=== PATIENT | female | born 1995 | race Caucasian/White ===

== ENCOUNTER 2021-03-15 06:23 | Inpatient (IN) | payer BC ==
[~2021-03-15] VITALS: Ht 175.3 cm; Wt 125.0 kg
[2021-03-15] VITALS (66 sets, daily range): BP systolic 110–169; BP diastolic 55–101; PULSE 68–131; TEMP 97.9–98.4
--- NOTE | 2021-03-15 06:35 | NUR ---
0635 Pt ambulatory to LR6 with spouse. Changed into clean gown. Pt denies decreased movement, vaginal bleeding, regular contractions, or any leaking of fluid. FHR/Hawkins applied. Induction of labor and plan of care discussed with patient. Patient verbalizes understanding. 0655 IV started in left wrist. Lactated Ringers started. Consents signed.
[2021-03-15] MEDS ORDERED: PRENATAL TABLET PO (06:57)
[2021-03-15] MEDS ORDERED: PROFERRIN ES12 MG PO (06:58)
[2021-03-15] MEDS ORDERED: DINO-LIFE1 CTB PO (06:59)
[2021-03-15 07:50] LABS: BASO % 0.2 % (0.0-2.0); EOS # 0.1 (0.0-0.7); EOS % 0.8 % (0-4.0); GRAN # 7.5 (1.4-6.5); GRAN % 74.2 % (42.2-75.2); HEMOGLOBIN 10.6 g/dl (12.5-16.0); MEAN CELL VOLUME 84 fl (80.0-100.0); MEAN CORPUSCULAR HEMOGLOBIN 28 pg (27.0-31.0); MEAN CORPUSCULAR HGB CONC 33 g/dl (33.0-37.0); MEAN PLATELET VOLUME 10.5 fl (7.4-10.4); MONO # 0.4 (0.1-0.6); MONO % 4.2 % (1.7-9.3); PLATELET COUNT 121 K/mm3 (130-400); RED BLOOD COUNT 3.79 M/mm3 (4.10-5.30); REDCELL DISTRIBUTION WIDTH-CV 13.6 % (11.5-14.5)
[2021-03-15 08:04] LABS: HEMATOCRIT 31.8 % (37.0-47.0)
--- NOTE | 2021-03-15 08:06 | NUR ---
Dr. Seth contacted per Madhuri. Reported minimal variability in FHR strip. Interventions in place. Fluid increased. Patient wedged right. Juice given to pt to drink. Starting pitocin per protocol at 2mu/hr.
[2021-03-15 08:16] LABS: COLLECTION METHOD CLEAN CATCH
[2021-03-15 08:22] LABS: MUCOUS Present /lpf; PH 6 (5-8); SQUAMOUS EPITHELIAL 0-2 /hpf; URINE APPEARANCE Hazy; URINE BACTERIA None Seen /hpf; URINE BILIRUBIN Negative (NEGATIVE); URINE BLOOD Negative (NEGATIVE); URINE COLOR Yellow; URINE GLUCOSE Negative (NEGATIVE); URINE KETONE Negative (NEGATIVE); URINE LEUKOCYTE ESTERASE Negative (NEGATIVE); URINE NITRATE Negative (NEGATIVE); URINE PROTEIN(semi-quant) Negative (NEGATIVE); URINE RBC 0-2 /hpf; URINE UROBILINOGEN Negative (NEGATIVE); URINE WBC 0-2 /hpf
[2021-03-15 08:35] LABS: ALBUMIN 2.5 gm/dL (3.5-5.0); ALKALINE PHOSPHATASE 133 U/L (0-750); ANION GAP 10 mmol/L; AST,SGOT 9 U/L (5-34); BILIRUBIN,TOTAL 0.2 mg/dL (0.2-1.2); BLOOD UREA NITROGEN 5 mg/dL (7-19); CALCIUM 8.6 mg/dL (8.4-10.2); CARBON DIOXIDE 19 mEq/L (22-29); CHLORIDE 108 mmol/L (98-107); CREATININE, serum 0.51 mg/dL (0.57-1.11); GLUCOSE 106 mg/dL (70-99); POTASSIUM 3.6 mmol/L (3.5-4.5); SODIUM 137 mmol/L (136-145); TOTAL PROTEIN 6.2 gm/dL (6.2-8.1)
[2021-03-15 08:42] LABS: ALANINE AMINOTRANSFERASE < 6 U/L (0-55)
--- NOTE | 2021-03-15 08:42 | NUR ---
No vital signs taken due to lab being in room to draw blood.
--- NOTE | 2021-03-15 09:05 | NUR ---
5980 Roles at pt bedside. Discussed plan of care. Reviewed FHR strip and orders to continue pitocin per protocol.
--- NOTE | 2021-03-15 11:02 | NUR ---
1010-Patient repositioned WR. 1030-Repositoned WL. 1047-Off EFM to bathroom. Returns to bedside standing. 1055-FHR with minimal variability and late decels pit turned off.
--- NOTE | 2021-03-15 12:27 | NUR ---
1224 Roles on unit reviewing FHR strip. Starting pitocin at 2mu/hr per MD order.
--- NOTE | 2021-03-15 12:28 | NUR ---
1204 Roles at patient bedside reviewing FHR strip. Discussing plan of care and options with patient. 1205 SVE /-3 per Roles. AROM @ 1205. FSE applied. Pt verbalizes understanding of plan.
--- NOTE | 2021-03-15 13:08 | NUR ---
1308- Roles leaving unit. Reviews FHR monitor and gives orders to continue with pitocin per protocol and call with questions or concerns.
--- NOTE | 2021-03-15 14:33 | NUR ---
PT UP TO BATHROOM
--- NOTE | 2021-03-15 15:21 | NUR ---
1450 Pt repositioned for epidural placement. RN at bedside. FHR tracing. Vital signs set to every 5 minutes. 1501 Test dose given. Plan of care discussed and safety precautions discussed. Pt verbalizes understanding.
--- NOTE | 2021-03-15 16:47 | NUR ---
1647 Roles on unit monitoring FHR strip/contractions.
--- NOTE | 2021-03-15 17:46 | NUR ---
5822 Dr. Seth on unit reviewing FHR strip/TOCO. This RN reported there was minimal variability before respoitioning patient. After repositioning pt into [facility] there was two variables and now moderate variability. Dr. Seth confirms. Will call with update of SVE
--- NOTE | 2021-03-15 18:58 | NUR ---
185- FHR NOTED TO BE DECELERATING DOWN. THIS RN TO BEDSIDE TO ASSIST PATIENT IN REPOSITIONING. FHR DOWN IN THE 60S. PATIENT REPOSITIONED TO RIGHT LATERAL. 1858- SVE BY THIS RN REVEALS /-1. FHR RESPONDING TO STIMULATION. 1899- PLACED ON MOTHER BY Akila PAUL RN. FHR STARTING TO RETURN TO BASELINE. FHR IN THE 90S. 1900- FHR UP TO 140-150, BACK TO BASELINE. DISCUSSED PLAN OF CARE WITH MOTHER. SHE VERBALIZED UNDERSTANDING. PATIENT IN WR POSITION. THIS RN REMAINS AT BEDSIDE FOR A FEW MINUTES TO MONITOR FHR WITH NEXT COUPLE OF CONTRACTIONS. 190- FHR STILL IN 140-150 RANGE. MOTHER TOLERATING WELL WITH NO CONCERNS OR NEEDS AT THIS TIME. CALL LIGHT WITHIN REACH.
--- NOTE | 2021-03-15 19:25 | NUR ---
1924- THIS RN TO BEDSIDE TO DECREASE PITOCIN DUE TO CONTRACTION PATTERN. DISCUSSED WITH PATIENT WHY AND SHE VERBALIZED UNDERSTANDING WITH NO FURTHER QUETIONS. 1928- DECREASED PITOCIN FROM 16 TO 10. THIS RN FINISHED THIS, FHR STARTED TO DECELERATE DOWN TO THE 70S. 1929- THIS RN HELPED PATIENT ROTATED FROM WR TO LL POSITION. AT THIS TIME, Akila PAUL, RN AND Shira BONDS, RN AT BEDSIDE TO HELP ASSIST. FHR NOT RETURNING OR RESPONDING AT THIS TIME AND STILL IN THE 70-80 RANGE. 1930- PATIENT REPOSITIONED TO WR POSITION. THIS RN CHECKED PATIENT AND SHE IS COMPLETE AND -1 STATION. 1931- CALLED PROVIDER PROP ATTENDANT TO LET HIM KNOW WHAT WAS HAPPENING AND THAT HE SHOULD PROBABLY COME IN. HE STATED HE WAS ON HIS WAY. WE HELPED PATIENT INTO HANDS AND KNEES. FHR STARTED TO RETURN TO BASELINE AT THIS POINT. FHR 145-150. 1932- FHR RETURNED TO BASELINE AND STAYING THERE AT 150 AT THIS POINT. THIS RN STAYS WITH PATIENT AT THIS TIME WHILE WAITING ON THE PROVIDER. 1943- DR. PERRY TO BEDSIDE. FHR STABLE AT 150. PROVIDER HAD TO RUN TO OR FOR SOMETHING AND ADVISED HE WOULD BE BACK. THIS RN REMAINS AT BEDSIDE WITH PATIENT. 1954- DR. PERRY BACK AT BEDSIDE AND DISCUSSES PLAN OF CARE AND POSSIBLE DELIVERY OPTIONS WITH PATIENT. PATIENT REPOSITIONED TO SEMI FOWLERS POSITION AND DOING WELL. CALL LIGHT WITHIN REACH.
--- NOTE | 2021-03-15 20:18 | NUR ---
2017- DR. PERRY AND THIS RN TO BEDSIDE FOR SVE TO SEE IF HEAD HAD DECENDED MORE TO START PUSHING. PROVIDER NOTED HEAD IN 0 STATION AND TO REMOVE SANTOS AND START PUSHING. 2019- THIS RN REMOVED THE SANTOS AND NOTED 150 URINE OUTPUT WITH THIS. 2024- THIS RN STARTS PUSHING WITH PATIENT AND STAYS IN THE ROOM TO CONTINUE PUSHING WITH PATIENT WITH CONTRACTIONS. 2042- DR. PERRY TO BEDSIDE TO EVALUATE PUSHING. ADVISED TO START PITOCIN AGAIN DUE TO CONTRACTIONS SPACING OUT. 2044- THIS RN STARTED PITOCIN PER PROTOCOL AT 2MU AND WILL INCREASE SLOWLY. THIS RN CONTINUES PUSHING WITH PATIENT WITH EVERY CONTRACTION. 2114- THIS RN INCREASED PITOCIN TO 4 MU. CONTINUES PUSHING WITH PATIENT AT THIS TIME. 2144- DR. PERRY TO BEDSIDE TO SEE HOW PATIENT IS PROGRESSING. THIS RN CONTINUES PUSHING WITH PATIENT. 2214- DR. PERRY TO BEDSIDE TO ADVISE THAT DR. KAUR IS ON HER WAY AND WILL MOST LIKELY DELIVER. THIS RN CONTINUES PUSHING WITH PATIENT. 2235- ROLES TO BEDSIDE. SHE PUSHES WITH PATIENT AND ADVISES PATIENT IS PUSHING WELL. THIS RN CONTINUES PUSHING WITH PATIENT. 2315- ROLES BACK TO BEDSIDE TO SEE HOW PATIENT IS DOING. PROVIDER SEES PATIENT PUSHING AND ADVISES TO GO AHEAD AND BREAK DOWN THE BED AND GET READY FOR DELIVERY. THIS RN CALLS NURSERY STAFF TO ADVISE OF THIS AND BEGINS SETTING UP ROOM FOR DELIVERY. 2328- OF VIABLE FEMALE . PLACED TO MOTHERS ABDOMEN WHERE NURSERY NURSE ASSUMES CARE. CORD CLAMPED AND CUT AND INFANT TAKEN TO WARMER TO BE ASSESSED BY NURSERY STAFF. 2330- THIS RN CALLED OVER BY NURSERY STAFF TO ASSIST IS ASSESSING INFANT AND PPV. THIS RN HELPS AND LISTENS FOR HEART RATE AND BREATH SOUNDS. Shira BONDS AND Sofia QUEZADA CRNA TO BEDSIDE TO ASSIST WITH AT THIS TIME. 2335- OF PLACENTA. FUNDUS MASSAGED TO FIRM BY PROVIDER. PITOCIN STARTED PER PROTOCOL AT 333ML/HR. 2340- PROVIDER GIVES VERBAL ORDER FOR 800MCG OF CYTOTEC RECTALLY. THIS RN GETS MEDICATION AND GIVE TO PROVIDER AND PROVIDER INSERTS MEDICATION RECTALLY. PROVIDER BEGINS REPAIRS. SECOND DEGREE TEAR NOTED BY PROVIDER. 2350- PATIENT AND ROOM CLEANED UP AND PUT BACK TOGETHER. VITALS STABLE. FUNDUS FIRM. 300 EBL NOTED BY PROVIDER. RECOVERY STARTED.
[2021-03-16] VITALS (11 sets, daily range): BP systolic 112–145; BP diastolic 56–78; PULSE 75–102; TEMP 97.7–99.2
[2021-03-16] MEDS ORDERED: IBU800 M1 PO (09:29)
--- NOTE | 2021-03-16 19:15 | NUR ---
1915 DISMISSED TO HOME PER AMB ACC BY AND TOOL PUSHER.
== END 2021-03-16 19:15 | disposition home or self-care (01) | DRG 806 ==
LOC: LDR 06:23 → OB 13:36
PROVIDERS: ADMIT Obstetrics & Gynecology
PROC: 10E0XZZ Delivery of Products of Conception, External Approach (ICD-10-PCS; principal; 2021-03-16)
PROC: 3E033VJ Introduction of Other Hormone into Peripheral Vein, Percutaneous Approach (ICD-10-PCS; 2021-03-16)
DX: O36.4XX0 Maternal care for intrauterine death, not applicable or unspecified (principal); O41.03X0 Oligohydramnios, third trimester, not applicable or unspecified; Z37.0 Single live birth; O99.12 Other diseases of the blood and blood-forming organs and certain disorders involving the immune mechanism complicating childbirth; D69.6 Thrombocytopenia, unspecified; O77.0 Labor and delivery complicated by meconium in amniotic fluid; O70.1 Second degree perineal laceration during delivery; O76 Abnormality in fetal heart rate and rhythm complicating labor and delivery; Z3A.40 40 weeks gestation of pregnancy
CPT/HCPCS: J2590; J7120

== ENCOUNTER 2023-06-10 10:39 | Inpatient (IN) | payer BC ==
[~2023-06-10] VITALS: Ht 177.8 cm; Wt 135.5 kg
[2023-06-10] VITALS (26 sets, daily range): BP systolic 129–197; BP diastolic 65–102; PULSE 66–95; TEMP 97.7–98.5
[~2023-06-10 10:39] MED LIST: CEPHALEXIN500 M1 PO; DINO-LIFE1 CTB PO; IBU800 M1 PO; PRENATAL TABLET PO; PROFERRIN ES12 MG PO
--- NOTE | 2023-06-10 11:10 | NUR ---
Pt arrived on unit ambulatory from clinic as a direct admit for a primary to be done this afternoon. Pt denies any contractions, leaking of fluid or vaginal bleeding and reports normal movement. EFM and toco monitors started. Serial BP started. Plan of care and orders received from Dr. Adams reviewed with pt and family at the bedside. Pt verbalized an understanding and agreed with the plan.
[2023-06-10 12:29] LABS: BASO % 0.2 % (0.0-2.0); GRAN # 10.3 K/mm3 (1.4-6.5); GRAN % 86.6 % (42.2-75.2); HEMOGLOBIN 11.5 g/dl (12.5-16.0); LYMPH # 1.2 K/mm3 (1.2-3.4); LYMPH % 10.1 % (20.0-51.0); MEAN CELL VOLUME 87 fl (80.0-100.0); MEAN CORPUSCULAR HEMOGLOBIN 30 pg (27-31); MEAN CORPUSCULAR HGB CONC 35 g/dl (33.0-37.0); MEAN PLATELET VOLUME 10.7 fl (7.4-10.4); MONO # 0.2 K/mm3 (0.1-0.6); MONO % 1.9 % (1.7-9.3); PLATELET COUNT 154 K/mm3 (130-400); RED BLOOD COUNT 3.81 M/mm3 (4.10-5.30); REDCELL DISTRIBUTION WIDTH-CV 13.7 % (11.5-14.5)
[2023-06-10 12:48] LABS: ALBUMIN 2.8 gm/dL (3.5-5.0); BILIRUBIN,TOTAL 0.5 mg/dL (0.2-1.2); CALCIUM 9.5 mg/dL (8.4-10.2); CREATININE, serum 0.57 mg/dL (0.57-1.11); TOTAL PROTEIN 6.1 gm/dL (6.2-8.1)
[2023-06-10 12:57] LABS: COLLECTION METHOD CLEAN CATCH; PH 7.5 (5.0-8.5); URINE APPEARANCE Clear (CLEAR/HAZY); URINE BLOOD Negative (NEGATIVE); URINE COLOR Yellow (YELLOW); URINE GLUCOSE Negative (NEGATIVE); URINE KETONE Negative (NEGATIVE); URINE NITRATE Negative (NEGATIVE); URINE PROTEIN(semi-quant) Negative (NEGATIVE); URINE UROBILINOGEN 0.2 E.U/dL (0.2-1.0); URINE WBC 0-2 /hpf (0-2)
[2023-06-10 12:58] LABS: POTASSIUM 2.6 mmol/L (3.5-4.5)
[2023-06-10] MEDS ORDERED: PREDNISONE20 MG PO (12:58)
[2023-06-10] MEDS ORDERED: HUMULIN N PE100 U/ML SQ ×2 (13:00→13:01)
[2023-06-10 13:02] LABS: HEMATOCRIT 33.1 % (37.0-47.0)
[2023-06-10] MEDS ORDERED: VTAMINC250TA PO (13:04)
[2023-06-10] MEDS ORDERED: B COMPLEX #11 TA1 PO (13:04)
[2023-06-10] MEDS ORDERED: NATURAL MAGNES200 MG PO (13:05)
[2023-06-10] MEDS ORDERED: VITAMIND3 5000 PO (13:06)
[2023-06-11] VITALS (8 sets, daily range): BP systolic 120–160; BP diastolic 56–88; PULSE 72–96; TEMP 97.9–98.4
[2023-06-11 07:46] LABS: BASO % 0.2 % (0.0-2.0); EOS % 0.2 % (0.0-4.0); GRAN # 9.3 K/mm3 (1.4-6.5); GRAN % 72.3 % (42.2-75.2); LYMPH # 2.7 K/mm3 (1.2-3.4); LYMPH % 20.7 % (20.0-51.0); MEAN CELL VOLUME 89 fl (80.0-100.0); MEAN CORPUSCULAR HGB CONC 33 g/dl (33.0-37.0); MEAN PLATELET VOLUME 10.6 fl (7.4-10.4); MONO # 0.7 K/mm3 (0.1-0.6); MONO % 5.8 % (1.7-9.3); PLATELET COUNT 154 K/mm3 (130-400); RED BLOOD COUNT 3.17 M/mm3 (4.10-5.30)
[2023-06-11 07:47] LABS: HEMATOCRIT 28.3 % (37.0-47.0); HEMOGLOBIN 9.4 g/dl (12.5-16.0); MEAN CORPUSCULAR HEMOGLOBIN 30 pg (27-31)
[2023-06-11 08:06] LABS: ALBUMIN 2.4 gm/dL (3.5-5.0); BILIRUBIN,TOTAL 0.3 mg/dL (0.2-1.2); CALCIUM 8.2 mg/dL (8.4-10.2); CREATININE, serum 0.58 mg/dL (0.57-1.11)
[2023-06-11 08:18] LABS: POTASSIUM 2.8 mmol/L (3.5-4.5)
--- NOTE | 2023-06-11 09:12 | NUR ---
Initial visit; Parents thanked Import/Export Administrator for offering congratulations and God's blessings for the of their son. Import/Export Administrator thanked family for choosing [facility].
--- NOTE | 2023-06-11 10:00 | NUR ---
Dr. Adams on the unit. Ok to stop blood pressure checks every 2 hours and continue to routine checks per protocol.
--- NOTE | 2023-06-11 10:30 | NUR ---
Dr. Adams on the unit. Orders received for repeat CMP to be done tomorrow morning.
[2023-06-11] MEDS ORDERED: ADALAT CC60 MG PO (10:36)
[2023-06-11] MEDS ORDERED: IBU600 MG PO (10:37)
[2023-06-11] MEDS ORDERED: ROXICODONE 55 MG/TAB PO (10:37)
[2023-06-11] MEDS ORDERED: MEDROL4 MG PO (10:38)
[2023-06-12 08:13] LABS: ALBUMIN 2.5 gm/dL (3.5-5.0); BILIRUBIN,TOTAL 0.4 mg/dL (0.2-1.2); CALCIUM 8.7 mg/dL (8.4-10.2); CREATININE, serum 0.58 mg/dL (0.57-1.11); TOTAL PROTEIN 5.3 gm/dL (6.2-8.1)
[2023-06-12 08:25] LABS: POTASSIUM 2.8 mmol/L (3.5-4.5)
[2023-06-12] MEDS ORDERED: K-TAB20 PO (09:13)
[2023-06-12] MEDS ORDERED: ADALAT CC90 MG PO (09:13)
[2023-06-12 09:30] VITALS: BP 164/55; PULSE 75; TEMP 98.2
[2023-06-12 12:30] VITALS: BP 178/85; PULSE 80
--- NOTE | 2023-06-12 13:00 | NUR ---
Dr. Adams on the unit. Blood pressures reviewed. Ok for discharge home with blood pressure check in the clinic on thursday.
[2023-06-12 15:00] VITALS: BP 167/80; PULSE 80
--- NOTE | 2023-06-12 15:30 | NUR ---
Discharge instructions and follow up care reviewed with pt and at the bedside. Both verbalized an understanding, agreed with the plan and states no questions or concerns at this time.
== END 2023-06-12 16:10 | disposition home or self-care (01) | DRG 788 ==
LOC: LDR 10:39 → OB 18:45
PROVIDERS: ADMIT Obstetrics & Gynecology
PROC: 10D00Z1 Extraction of Products of Conception, Low, Open Approach (ICD-10-PCS; principal; 2023-06-10)
DX: O36.63X0 Maternal care for excessive fetal growth, third trimester, not applicable or unspecified (principal); Z3A.36 36 weeks gestation of pregnancy; Z37.0 Single live birth; O99.214 Obesity complicating childbirth; O99.02 Anemia complicating childbirth; D64.9 Anemia, unspecified; O24.424 Gestational diabetes mellitus in childbirth, insulin controlled; O14.14 Severe pre-eclampsia complicating childbirth; O75.89 Other specified complications of labor and delivery; E87.6 Hypokalemia; O90.89 Other complications of the puerperium, not elsewhere classified; R03.0 Elevated blood-pressure reading, without diagnosis of hypertension
CPT/HCPCS: J0360; J0690; J1920; J2371; J2405; J2590; J2930; J3480; J7509